=== PATIENT | male | born 1995 | race Caucasian/White ===

== ENCOUNTER 2017-10-08 02:09 | Emergency (ER) | payer OTHER ==
[~2017-10-08] VITALS: Ht 175.3 cm; Wt 76.6 kg
[2017-10-08 02:14] VITALS: BP 133/78
== END 2017-10-08 02:53 | disposition home or self-care (01) ==
LOC: ER 02:10
DX: N48.89 Other specified disorders of penis (principal)
CPT/HCPCS: 99281